=== PATIENT | female | born 2005 | race Caucasian/White ===

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

== ENCOUNTER → 2025-06-23 12:34 | Outpatient (BNVA) | payer BC, SELFPAY | PROVIDERS: PCP Family Medicine; Visit Provider Nurse Practitioner Women's Health | DX: R53.83 Other fatigue (principal); N91.2 Amenorrhea, unspecified | CPT/HCPCS: 80053; 82306; 82670; 83001; 83002; 83036; 83520; 83525; 84402; 84403; 85025 ==

== ENCOUNTER → 2025-07-08 08:26 | Outpatient (BNVA) | payer SELFPAY | PROVIDERS: PCP Family Medicine; Visit Provider Nurse Practitioner Women's Health | DX: N91.2 Amenorrhea, unspecified (principal); N88.8 Other specified noninflammatory disorders of cervix uteri; R93.41 Abnormal radiologic findings on diagnostic imaging of renal pelvis, ureter, or bladder | CPT/HCPCS: 76830 ==